=== PATIENT | male | born 1960 | race Caucasian/White ===

== ENCOUNTER → 2023-10-04 08:13 | Outpatient (REF) | payer BC, MEDICARE, SELFPAY | LOC: RAD 08:13 | PROVIDERS: ATTENDING PHYSICIAN Surgery Vascular Surgery; FAMILY PHYSICIAN Internal Medicine | DX: I73.9 Peripheral vascular disease, unspecified (principal) | CPT/HCPCS: 93922; 93925; 93978 ==

== ENCOUNTER → 2024-09-17 07:49 | Outpatient (REF) | payer MEDICARE, BC, SELFPAY | LOC: RAD 07:49 | PROVIDERS: ATTENDING PHYSICIAN Surgery Vascular Surgery; FAMILY PHYSICIAN Internal Medicine | DX: I73.9 Peripheral vascular disease, unspecified (principal) | CPT/HCPCS: 93922; 93925; 93978 ==

== ENCOUNTER → 2025-02-19 08:04 | Outpatient (REF) | payer MEDICARE, BC, SELFPAY | LOC: RAD 08:04 | PROVIDERS: ATTENDING PHYSICIAN Surgery Vascular Surgery; FAMILY PHYSICIAN Internal Medicine | DX: I73.9 Peripheral vascular disease, unspecified (principal) | CPT/HCPCS: 75635; Q9967 ==

== ENCOUNTER 2025-04-14 05:58 | Day surgery (SDC) | payer MEDICARE, BC, SELFPAY ==
[2025-04-14] VITALS (16 sets, daily range): BP systolic 102–155; BP diastolic 43–112; BMI 40.9
--- NOTE | 2025-04-14 07:26 | W.SUR.PREOP ---
Pre-Operative Surgical Note
-
I have examined this patient prior to the performance of the scheduled procedure.
The patient's condition is unchanged from the time of the current History and
Physical and the patient is able to undergo the scheduled procedure.
[2025-04-14 07:28] LABS: Hematocrit 45.7 % (39.0-52.0); Hemoglobin 15.1 g/dL (13.0-18.0); Mean Corp Hgb Conc. 33.0 g/dL (33.0-37.0); Mean Corpuscular Volume 89.6 fL (80.0-94.0); Platelet Count 172 10^3/uL (130-400); Red Cell Dist. Width 14.1 % (11.5-14.5)
[2025-04-14 07:37] LABS: INR 0.94; PT 12.9 Sec (11.4-14.6)
[2025-04-14 07:38] LABS: APTT 29.1 Sec (23.4-35.0)
[2025-04-14 07:39] LABS: Blood Urea Nitrogen 13 mg/dl (9-20); Calcium 9.1 mg/dl (8.4-10.2); Carbon Dioxide 26 mmol/L (22-30); Chloride 106 mmol/L (98-107); Estimated Creatinine Clearance > 125 ml/min; Glucose 143 mg/dl (70-99); Potassium 4.6 mmol/L (3.5-5.1); Sodium 137 mmol/L (135-145); eGFR > 60.00
--- NOTE | 2025-04-14 08:54 | W.IMMPOSTOP ---
Surgical Immed Post Op Note
-
Primary Surgeon: Dr. Alex Mcleod III, MD
Assisting Surgeon: Satish Linton MD PGY2
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
Procedure Performed: Balloon angioplasty, stenting of L iliac limb
Anesthesia Type: Sedation/local
Specimen / Cultures: None
Estimated Blood Loss: 4 cc
Complications: None
Operative Findings: Stenotic region at left iliac limb distal anastomosis. Right and left groin access, retrograde balloon angioplasty and stenting
[2025-04-14 09:27] LABS: Glucose - Point of Care 161 mg/dl (70-99)
[2025-04-14] MEDS: PLAVIX 300 MG PO (09:33)
[2025-04-14] MEDS: NSS 1000 IV (11:49)
--- NOTE | 2025-04-15 08:21 | OR.RPT ---
Operative Report
Operative Report
Date of Operation: 04/14/2025
Pre Op Diagnosis: High-grade stenosis, left femoral anastomosis of aortobifemoral bypass
Post Op Diagnosis: High-grade stenosis, left femoral anastomosis of aortobifemoral bypass
Procedure:
1. Balloon angioplasty and stenting of left femoral anastomotic stenosis (9 mm x 5 cm Viabahn stent graft)
2. Diagnostic aortobiiliac arteriogram
3. Diagnostic left lower extremity arteriogram (limited)
4. Ultrasound-guided percutaneous access to the BILATERAL common femoral arteries
Surgeon: Alex Mcleod III, MD
Electric Clock Mechanic: Satish Linton MD PGY2
Anesthesia: Sedation with local
Fluoroscopy:
18.2 min
1434 mGy
321.37 gy.cm2
Complications: None
Estimated Blood Loss: Less than 10 cc
History and Indications for Procedure: 65-year-old male with prior aorto right iliac/left femoral bypass. He developed a recurrent left common femoral artery anastomotic stenosis.
Procedure in Detail: Nicolas Melissa was correctly identified and placed supine on the operating table. After adequate induction of anesthesia the bilateral groins were prepped and draped in the usual sterile fashion. A timeout was performed with
the nursing and anesthesia staff confirming the patient's identity as well as the nature and laterality of the procedure.
The right common femoral artery was identified under ultrasound guidance. The artery was patent. The superior and inferior aspects of the femoral head were identified with radiographic guidance and marked at the skin level. The proposed puncture
site was infiltrated with local anesthesia. Under ultrasound guidance we accessed the right common femoral artery with a micropuncture needle and upsized to a 5 Fr sheath over a Magiqson wire. The wire and a ShepherOMEGA MORGAN hook flush catheter were
advanced into the distal abdominal aorta and a diagnostic aorto-biiliac arteriogram was performed:
AORTO-ILIAC ARTERIOGRAM:
Aorta: Patent
Patent aorto right iliac/left femoral bypass
High-grade stenosis of the left femoral anastomosis consistent with preoperative imaging
Under roadmap guidance using a Glidewire and the ShepherOMEGA MORGAN hook catheter we selected the left iliac limb. I was able to advance the wire down to the left femoral anastomosis but was unable to track a catheter up and over to the left secondary to
the acute angulation of the bypass graft. Multiple attempts were made but ultimately we abandon this approach.
On review of the initial arteriogram and an ultrasound evaluation of the left common femoral artery it appeared that we would have enough running room to perform an endovascular intervention on the left femoral anastomosis from a retrograde left
femoral access approach. The inferior aspect of the left femoral head was identified under fluoroscopy. Using ultrasound guidance we then accessed the most distal aspect of the left common femoral artery at the profunda origin. I then upsized to
a 5 Lebanese sheath over an Amplatz wire. A retrograde arteriogram was performed demonstrating once again the high-grade left femoral anastomotic stenosis.
ENDOVASCULAR INTERVENTION: Systemic heparin was administered. Exchanged out for a 8 Fr sheath over a Amplatz wire. The Amplatz wire was positioned across the aortic anastomosis. Under roadmap guidance the left femoral anastomotic stenosis was
treated with an 8 mm x 40 mm angioplasty balloon. This was inflated to nominal pressure for a 2-minute inflation. Subsequent arteriogram demonstrated an improved but suboptimal result. I then treated the residual left femoral anastomotic stenosis
with a 9 mm x 5 cm Viabahn stent graft. The stent was positioned in the desired location across the femoral anastomosis and deployed successfully. The stent was then ballooned with a 9 mm x 40 mm angioplasty balloon. The distal aspect of the
stent in the proximal common femoral artery was ballooned with a 10 mm x 2 cm angioplasty balloon.
COMPLETION ARTERIOGRAM: Excellent technical result. Widely patent left iliac limb and left femoral anastomosis. Widely patent Viabahn stent graft with no residual stenosis identified. Brisk outflow through the left common femoral artery and
profunda femoral artery. 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
Satisfied with this result we concluded the procedure. Protamine was administered. The sheaths were pulled from the femoral access sites 1 at a time bilaterally and direct manual pressure was held over the puncture sites until hemostasis was
achieved. Sterile dressings were applied.
The patient tolerated the procedure well and was taken to the recovery area in stable condition.
Attestation: I was present and responsible for the entire procedure.
Signed:
Alex Mcleod III, MD
Vascular Surgery
[facility]
== END 2025-04-14 15:15 | disposition home or self-care (01) ==
LOC: CATH 05:58
PROVIDERS: ATTENDING PHYSICIAN Surgery Vascular Surgery; PRIMARYCARE PHYSICIAN Internal Medicine
DX: T82.858A Stenosis of other vascular prosthetic devices, implants and grafts, initial encounter (principal); Y84.9 Medical procedure, unspecified as the cause of abnormal reaction of the patient, or of later complication, without mention of misadventure at the time of the procedure; Z88.0 Allergy status to penicillin; I10 Essential (primary) hypertension; E78.5 Hyperlipidemia, unspecified; E11.9 Type 2 diabetes mellitus without complications; I25.2 Old myocardial infarction; Z95.5 Presence of coronary angioplasty implant and graft; I25.10 Atherosclerotic heart disease of native coronary artery without angina pectoris; Z95.820 Peripheral vascular angioplasty status with implants and grafts
CPT/HCPCS: 37226; C1760; 75625; 75710; 80048; 82962; 85027; 85610; 85730; C1725; C1769; C1874; C1894; Q9967

== ENCOUNTER → 2025-05-20 08:50 | Outpatient (REF) | payer MEDICARE, BC, SELFPAY | LOC: RAD 08:50 | PROVIDERS: ATTENDING PHYSICIAN Surgery Vascular Surgery; FAMILY PHYSICIAN Internal Medicine | DX: I73.9 Peripheral vascular disease, unspecified (principal) | CPT/HCPCS: 93922; 93925 ==

== ENCOUNTER → 2025-06-12 08:27 | Outpatient (REF) | payer MEDICARE, BC, SELFPAY | LOC: RAD 08:27 | PROVIDERS: ATTENDING PHYSICIAN Registered Nurse; FAMILY PHYSICIAN Internal Medicine | DX: I73.9 Peripheral vascular disease, unspecified (principal) | CPT/HCPCS: 93978 ==